=== PATIENT | male | born 1990 | race Caucasian/White ===

== ENCOUNTER 2021-12-12 12:18 | Outpatient (CLI) | payer BC | END 2021-12-12 12:19 | disposition home or self-care (01) | LOC: CSHLAB 12:18 | PROVIDERS: ATTEND Internal Medicine Gastroenterology | DX: Z20.822 Contact with and (suspected) exposure to COVID-19 (principal); R13.10 Dysphagia, unspecified | CPT/HCPCS: U0003; U0005 ==

== ENCOUNTER 2021-12-17 07:36 | Day surgery (SDC) | payer BC ==
[~2021-12-17 07:36] MED LIST: Lidocaine 2% MPF 10 ML AMP (For Epidural Use) ONE; PROPOFOL 20 ML ONE
[2021-12-17] MEDS ORDERED: Lidocaine 1% MPF 2 ML VIAL ONE (08:44)
[2021-12-17] MEDS ORDERED: Fentanyl 100 MCG/2 ML VIAL ONE (09:50)
== END 2021-12-17 10:58 | disposition home or self-care (01) ==
LOC: CSHSDC 07:36
PROVIDERS: ATTEND Internal Medicine Gastroenterology
PROC: 0D757ZZ Dilation of Esophagus, Via Natural or Artificial Opening (ICD-10-PCS; principal; 2021-12-17)
PROC: 0DB78ZX Excision of Stomach, Pylorus, Via Natural or Artificial Opening Endoscopic, Diagnostic (ICD-10-PCS; principal; 2021-12-17)
DX: K31.7 Polyp of stomach and duodenum (principal); R13.10 Dysphagia, unspecified; K21.9 Gastro-esophageal reflux disease without esophagitis; Z79.899 Other long term (current) drug therapy
CPT/HCPCS: 88305; J2704; J3010